=== PATIENT | female | born 1945 | race Caucasian/White ===

== ENCOUNTER → 2023-12-09 09:28 | Outpatient (REF) | payer OTHER, SELFPAY | LOC: HWRAD 09:28 | PROVIDERS: ATTENDING PHYSICIAN Nurse Practitioner Family | DX: M81.0 Age-related osteoporosis without current pathological fracture (principal) | CPT/HCPCS: 77080 ==

== ENCOUNTER → 2024-02-22 10:03 | Outpatient (REF) | payer OTHER, SELFPAY | LOC: HWRCS 10:03 | PROVIDERS: ATTENDING PHYSICIAN Internal Medicine; FAMILY PHYSICIAN Nurse Practitioner Family | DX: I35.1 Nonrheumatic aortic (valve) insufficiency (principal) | CPT/HCPCS: 93306 ==

== ENCOUNTER → 2024-10-13 10:03 | Outpatient (REF) | payer OTHER, SELFPAY | LOC: HWWDC 10:03 | PROVIDERS: ATTENDING PHYSICIAN Nurse Practitioner Family | DX: Z12.31 Encounter for screening mammogram for malignant neoplasm of breast (principal) | CPT/HCPCS: 77063; 77067 ==

== ENCOUNTER 2025-04-06 14:36 | Emergency (ER) | payer OTHER, SELFPAY ==
[2025-04-06 14:39] VITALS: BP 165/98
[2025-04-06] MEDS: NSS 1000 IV (16:22)
[2025-04-06 16:31] LABS: Hematocrit 44.0 % (37.0-47.0); Hemoglobin 14.6 g/dL (12.0-16.0); Mean Corp Hgb Conc. 33.2 g/dL (33.0-37.0); Mean Corpuscular Volume 84.8 fL (81.0-99.0); Platelet Count 345 10^3/uL (130-400); Red Cell Dist. Width 14.2 % (11.5-14.5)
[2025-04-06 16:52] LABS: ALT (SGPT) 39 U/L (0-35); AST (SGOT) 40 U/L (14-36); Albumin 4.6 g/dl (3.5-5.0); Alkaline Phosphatase 53 U/L (38-126); Blood Urea Nitrogen 17 mg/dl (7-17); Calcium 9.2 mg/dl (8.4-10.2); Carbon Dioxide 22 mmol/L (22-30); Glucose 133 mg/dl (70-99); Total Protein 7.2 g/dl (6.3-8.2); eGFR > 60.00
[2025-04-06 17:00] LABS: Chloride 100 mmol/L (98-107); Potassium 4.4 mmol/L (3.5-5.1); Sodium 131 mmol/L (135-145)
--- NOTE | 2025-04-06 17:10 | ED.GENMED ---
History of Present Illness
General
Chief Complaint: Fall
Time Seen by Provider: 04/06/25 16:05
History of Present Illness
History of Present Illness:
80-year-old female presents the emergency department for evaluation of facial pain and diffuse body pain after falling down approximately 5 steps at 10 AM today. States she got dizzy and lost her balance walking down a spiral staircase. Denies
LOC. She is not on anticoagulants. No vision changes, neck pain, or extremity paresthesias. Denies any dizziness at that time. No chest pain or trouble breathing
Review of Systems
Review of Systems
Allergies reviewed?: Yes
All Other Systems: ROS reviewed and negative except as documented in HPI and ROS
Phy Exam
Physical Exam
Physical Exam:
GEN: Well appearing, NAD, WDWN
HEENT: Diffuse periorbital ecchymosis involving the right eye, normal extraocular motion bilaterally oral mucosa moist, no scleral icterus
Cardiac: Regular rate and rhythm
Lung: No respiratory distress, no tachypnea
MSK: No gross deformity or injuries, no midline C/T/L-spine tenderness. No obvious bony deformities
Skin: Good color, no pallor or jaundice, no rashes, minor abrasions to the right knee and left silva
Neuro: AO x3, moves all extremities freely
Psych: Calm, cooperative
Course
Orders/Labs/Results
Orders:
Orders
04/06/25 14:42
CT Facial Bones W/o Iv Contras Urgent
Comment:
Reason For Exam: R eye pain, fall
CT Head W/o Iv Contrast Urgent
Comment:
Reason For Exam: fall
04/06/25 14:44
Cervical Spine wo Contrast CT [CT Cervical Spine W/o Iv Contr] Urgent
Comment:
Reason For Exam: fall down 5 stairs
04/06/25 14:45
Wrist, Left 3 Views CR [CR Wrist - Left Min 3 Views] Urgent
Comment:
Reason For Exam: fall
04/06/25 16:14
0.9% Sodium Chloride 1000 ml [Nss] 1,000 ml IV BOLUS
04/06/25 16:21
Complete Blood Count/No Diff Urgent
Comprehensive Metabolic Panel Urgent
Abnormal Lab Results
04/06/25
16:21
WBC 11.1 H 10^3/uL
(4.8-10.8)
Sodium 131 L mmol/L
(135-145)
Glucose 133 H mg/dl
(70-99)
AST 40 H U/L
(14-36)
ALT 39 H U/L
(0-35)
04/06/25 16:21
04/06/25 16:21
Vital Signs
Initial and Last Documented VS:
Initial Vital Signs
Temp Pulse Resp BP Pulse Ox
98.6 F 94 16 165/98 98
04/06/25 14:39 04/06/25 14:39 04/06/25 14:39 04/06/25 14:39 04/06/25 14:39
Last Documented Vital Signs
Temp Pulse Resp BP Pulse Ox
98.6 F 94 16 165/98 98
04/06/25 14:39 04/06/25 14:39 04/06/25 14:39 04/06/25 14:39 04/06/25 17:12
MDM/Problems Addressed
MDM/Problems Addressed:
Patient has no focal tenderness to the cervical spine and normal range of motion with no neurologic symptoms. Low clinical suspicion that her cervical spine injury as seen on CT is acute. This is likely a chronic abnormality., However I have
recommended she follow-up with her primary care physician to discuss repeat imaging within the next month. Overall no abnormalities found on trauma studies otherwise, labs reassuring
*Pulse Oximetry
SaO2: 98
Oxygen Mode of Delivery: Room air
Patient hypoxic: no
*Critical Care Note
Total Time (30-74mins, 75-104mins- exclusive of procedures): Not Applicable
ED Attending Note
-
Portions of this chart may have been created with voice recognition software.� Occasional wrong word or��sound alike� substitutions may have occurred due to the inherent limitations of voice recognition software.
Discharge Plan
Departure
Patient Disposition: Home (Routine Discharge)
Date of Disposition: 04/06/25
Time of Disposition: 17:11
Patient with high blood pressure during this ER visit?: No
Discharge Problem:
Fall, Dizziness, Cervical compression fracture
Instructions: Preventing falls in adults
Prescriptions:
No Action
olmesartan [Benicar] 5 MG tablet
5 mg PO DAILY Qty: 0 0RF
multivitamin Tablet
1 tab PO DAILY
trazodone 50 mg Tablet
75 mg PO HS
atorvastatin 10 mg Tablet
10 mg PO DAILY
ascorbic acid (vitamin C) [Vitamin C] 500 mg Tablet
500 mg PO DAILY
vitamin B complex Tablet
1 tab PO DAILY
PreserVision AREDS [id number] Capsule
1 cap PO BID
acetaminophen [acetaminophen] 325 mg tablet
650 mg PO Q4HPRN PRN (Reason: mild pain) Qty: 1 0RF
tramadol 50 mg tablet
25 - 50 mg PO Q6HPRN PRN (Reason: severe pain/breakthrough pain) Qty: 7 0RF
ibuprofen 200 mg tablet
400 mg PO Q6HPRN PRN (Reason: moderate pain) Qty: 1 0RF
Referrals:
Ok James CRNP [Family Provider, Family Practice]
Activity Restrictions/Additional Instructions:
Please have your neck reimaged in 2 to 4 weeks to reassess the compression fracture of your cervical spine although this is almost certainly not acute based on your current symptoms
Interventions
Interventions:
*Risk Screen - Suicide (C-SSRS) Last Done: 04/06/25 14:39
*Nursing Disposition Last Done: 04/06/25 17:31
ED-Musculoskeletal Assessment Last Done: 04/06/25 16:24
ED- Neurological Assessment Last Done: 04/06/25 16:24
ED-Skin Assessment Last Done: 04/06/25 16:24
Discharge Date and Time
Discharge Date/Time: 04/06/25 17:31
Print Language: BELIZEAN
== END 2025-04-06 17:31 | disposition home or self-care (01) ==
LOC: EMR 14:36
PROVIDERS: Physician Assistant; EMERGENCY PHYSICIAN Emergency Medicine; FAMILY PHYSICIAN Nurse Practitioner Family
DX: M48.52XA Collapsed vertebra, not elsewhere classified, cervical region, initial encounter for fracture (principal); W10.9XXA Fall (on) (from) unspecified stairs and steps, initial encounter
CPT/HCPCS: 99284; 96360; 70450; 70486; 72125; 73110; 80053; 85027